=== PATIENT | male | born 1945 | race Caucasian/White ===

== ENCOUNTER 2018-05-05 08:53 | Emergency (ER) | payer MEDICARE ==
[2018-05-05] MEDS: NICARDipine HCL 30 MG CAPSULE PO (09:32)
[2018-05-05] MEDS: HYDROCODONE/APAP (10/325) TAB PO (09:57)
[2018-05-05] MEDS: ONDANSETRON (ODT) 4 MG TAB ODT (09:57)
== END 2018-05-05 10:18 | disposition home or self-care (01) ==
LOC: E/R 08:53
DX: I10 Essential (primary) hypertension (principal); L03.116 Cellulitis of left lower limb; R40.2142 Coma scale, eyes open, spontaneous, at arrival to emergency department; R40.2362 Coma scale, best motor response, obeys commands, at arrival to emergency department
CPT/HCPCS: 99283

== ENCOUNTER 2018-05-05 16:28 | Inpatient (IN) | payer MEDICARE, MEDICAID ==
[~2018-05-05 16:28] MED LIST: METOPROLOL 5 MG INJ; SEVOFLURANE 15 MIN
[2018-05-05 18:15] LABS: ADD MAN DIFF? NO
[2018-05-05 18:17] LABS: WHITE BLOOD COUNT 5.9 10^3/ul (4.8-10.8)
[2018-05-05 18:17] LABS: BASOPHILS % 0.3 % (0.0-2.0); EOSINOPHILS # 0.1 10^3/ul (0.0-0.5); HEMATOCRIT 43.1 % (42.0-52.0); HEMOGLOBIN 13.8 g/dl (14.0-18.0); LYMPHOCYTES # 1.5 10^3/ul (0.8-2.9); LYMPHOCYTES % 24.7 % (15.0-51.0); MEAN CORPUSCULAR HEMOGLOBIN 30.7 pg (29.0-33.0); MEAN PLATELET VOLUME 10.5 fl (7.4-10.4); MONOCYTE # 0.7 10^3/ul (0.3-0.9); MONOCYTES % 11.1 % (0.0-11.0); NEUTROPHIL # 3.7 10^3/ul (1.6-7.5); NEUTROPHILS % 62.4 % (39.0-77.0); PLATELET COUNT 174 10^3/UL (140-415); RED BLOOD COUNT 4.49 10^6/ul (4.70-6.10); RED CELL DISTRIBUTION WIDTH 12.5 % (11.5-14.5)
[2018-05-05 18:32] LABS: INR 0.94; PROTIME 12.7 Sec (11.9-14.9)
[2018-05-05 18:33] LABS: PARTIAL THROMBOPLASTIN TIME 32.4 Sec (23.0-35.0)
[2018-05-05] MEDS: KETOROLAC 15 MG INJ IV (18:34)
[2018-05-05] MEDS: SOD CHLORIDE 0.9% 500 ML IV (18:35)
[2018-05-05] MEDS: PIPER-TAZO 3.375 GM IV (PMX) 100 ML IVPB (18:35)
[2018-05-05 18:36] LABS: ALANINE AMINOTRANSFERASE 17 IU/L (13-69); ALBUMIN 4.3 g/dl (3.3-4.9); ALBUMIN/GLOBULIN RATIO 1.02; ALKALINE PHOSPHATASE 95 IU/L (42-121); ANION GAP 3 (5-13); ASPARTATE AMINO TRANSFERASE 24 IU/L (15-46); BILIRUBIN,INDIRECT 0.3 mg/dl (0-1.1); BILIRUBIN,TOTAL 0.3 mg/dl (0.2-1.3); BLOOD UREA NITROGEN 23 mg/dl (7-20); CALCIUM 9.4 mg/dl (8.4-10.2); CARBON DIOXIDE 27 mmol/L (21-31); CHLORIDE 108 mmol/L (97-110); CREATININE 1.18 mg/dl (0.61-1.24); GLUCOSE 145 mg/dl (70-220); LIPASE 50 U/L (23-300); SODIUM 138 mmol/L (135-144); TOTAL PROTEIN 8.5 g/dl (6.1-8.1)
[2018-05-05 18:37] LABS: ETHANOL < 10.0 mg/dl (0-0)
[2018-05-05] MEDS ORDERED: MIDAZOLAM 1 MG/ML 2 ML INJ (19:27)
[2018-05-05] MEDS ORDERED: morphine SULFATE/PF (10 MG/10 ML) INJ (19:28)
[2018-05-05] MEDS ORDERED: FENTAnyl 50 MCG/ML VIAL ×2 (19:28→20:26)
[2018-05-05] MEDS: VANCOMYCIN 1 GM (PMX) 250 ML IVPB (19:55)
[2018-05-05] MEDS ORDERED: hydrALAzine 20 MG INJ (20:24)
[2018-05-05] MEDS ORDERED: PROPOFOL 20 ML (20:44)
[2018-05-05] MEDS ORDERED: LIDOCAINE 2% (SDV) 5 ML INJ (20:44)
[2018-05-05] MEDS ORDERED: ONDANSETRON 4 MG INJ (20:45)
[2018-05-05] MEDS ORDERED: LABETALOL HCL 20MG INJ IV (21:00)
[2018-05-05] MEDS ORDERED: DIPHENHYDRAMINE 50 MG INJ IV ×2 (21:00)
[2018-05-05] MEDS ORDERED: FENTAnyl 50 MCG/ML VIAL IV (21:00)
[2018-05-05] MEDS ORDERED: MEPERIDINE 25 MG INJ IV (21:00)
[2018-05-05] MEDS: FAMOTIDINE 20 MG TAB PO (21:00)
[2018-05-05] MEDS ORDERED: NALOXONE (0.4 MG/ML) INJ IV (21:00)
[2018-05-05] MEDS ORDERED: hydrALAzine 20 MG INJ IV (21:00)
[2018-05-05] MEDS ORDERED: ONDANSETRON 4 MG INJ IV (21:00)
[2018-05-05] MEDS ORDERED: morphine 2 MG INJ IV ×2 (21:00→21:30)
[2018-05-05] MEDS ORDERED: METOCLOPRAMIDE 10 MG INJ IV (21:00)
[2018-05-05 21:06] LABS: POTASSIUM 4.2 mmol/L (3.5-5.1)
[2018-05-05] MEDS ORDERED: HYDROCODONE/APAP (5/325) TAB PO (21:30)
[2018-05-05] MEDS ORDERED: NACL 0.9% 3 ML SYG IV (21:30)
[2018-05-05] MEDS ORDERED: ACETAMINOPHEN 325 MG TAB PO (21:30)
[2018-05-05] MEDS ORDERED: VANCOMYCIN IV PER PHARMACY XX (21:30)
[2018-05-06] MEDS: PIPER-TAZO 3.375 GM IV (PMX) 100 ML IVPB ×4 (00:19→17:23)
[2018-05-06] MEDS: VANCOMYCIN 500 MG (PMX) 100 ML IVPB (00:20)
[2018-05-06] MEDS: ONDANSETRON 4 MG INJ IV ×2 (05:30→17:35)
[2018-05-06 06:20] LABS: ADD MAN DIFF? NO
[2018-05-06 06:38] LABS: BASOPHILS % 0.4 % (0.0-2.0); EOSINOPHILS % 0.1 % (0.0-7.0); HEMATOCRIT 41.2 % (42.0-52.0); HEMOGLOBIN 13.1 g/dl (14.0-18.0); LYMPHOCYTES # 0.9 10^3/ul (0.8-2.9); LYMPHOCYTES % 9.9 % (15.0-51.0); MEAN CORPUSCULAR HEMOGLOBIN 30.9 pg (29.0-33.0); MEAN CORPUSCULAR HGB CONC 31.8 g/dl (32.0-37.0); MEAN CORPUSCULAR VOLUME 97.2 fl (82.0-101.0); MEAN PLATELET VOLUME 11.3 fl (7.4-10.4); MONOCYTE # 0.7 10^3/ul (0.3-0.9); MONOCYTES % 7.8 % (0.0-11.0); NEUTROPHILS % 81.6 % (39.0-77.0); PLATELET COUNT 167 10^3/UL (140-415); RED BLOOD COUNT 4.24 10^6/ul (4.70-6.10); RED CELL DISTRIBUTION WIDTH 12.5 % (11.5-14.5)
[2018-05-06 06:38] LABS: HEMOGLOBIN A1C 7.6 % (0-5.9); WHITE BLOOD COUNT 8.6 10^3/ul (4.8-10.8)
[2018-05-06 07:32] LABS: ALANINE AMINOTRANSFERASE 23 IU/L (13-69); ALBUMIN 3.9 g/dl (3.3-4.9); ALBUMIN/GLOBULIN RATIO 0.97; ALKALINE PHOSPHATASE 96 IU/L (42-121); ANION GAP 8 (5-13); ASPARTATE AMINO TRANSFERASE 25 IU/L (15-46); BILIRUBIN,INDIRECT 0.3 mg/dl (0-1.1); BILIRUBIN,TOTAL 0.3 mg/dl (0.2-1.3); BLOOD UREA NITROGEN 24 mg/dl (7-20); CALCIUM 9.2 mg/dl (8.4-10.2); CARBON DIOXIDE 21 mmol/L (21-31); CHLORIDE 110 mmol/L (97-110); CHOL/HDL RATIO 3.5 RATIO; CHOLESTEROL 136 mg/dl (100-200); CREATININE 1.21 mg/dl (0.61-1.24); GLUCOSE 169 mg/dl (70-220); HDL CHOLESTEROL 38 mg/dl (31-75); LDL CHOLESTEROL,CALCULATED 83 mg/dl; POTASSIUM 4.1 mmol/L (3.5-5.1); SODIUM 139 mmol/L (135-144); TOTAL PROTEIN 7.9 g/dl (6.1-8.1); TRIGLYCERIDES 74 mg/dl (0-149)
[2018-05-06] MEDS: FAMOTIDINE 20 MG TAB PO ×2 (08:31→20:02)
[2018-05-06] MEDS: HYDROCODONE/APAP (5/325) TAB PO (12:09)
[2018-05-06] MEDS ORDERED: DEXTROSE 50% 50 ML SYRINGE IV (12:30)
[2018-05-06] MEDS ORDERED: GLUCAGON 1 MG INJ IM (12:30)
[2018-05-06] MEDS ORDERED: GLUCOSE GEL 15 GRAM TUBE PO ×2 (12:30)
[2018-05-06] MEDS ORDERED: GLUCOSE GEL 15 GRAM TUBE BUCCAL (12:30)
[2018-05-06] MEDS: LISINOPRIL 5 MG TAB PO (13:04)
[2018-05-06] MEDS: INSULIN ASPART [NOVOLOG] 3 ML PEN SC ×5 (13:09→20:04)
[2018-05-06] MEDS: hydrALAzine 20 MG INJ IV (17:25)
[2018-05-06] MEDS: KETOROLAC 15 MG INJ IV (20:05)
[2018-05-06] MEDS: INSULIN GLARGINE [LANTus] (100 UNITS/ML) SYG SC (20:16)
[2018-05-06] MEDS: VANCOMYCIN HCL 1.5 GM in SOD CHLORIDE 0.9% 250 ML IVPB (21:37)
[2018-05-07] MEDS: PIPER-TAZO 3.375 GM IV (PMX) 100 ML IVPB ×3 (01:00→12:40)
[2018-05-07 03:16] LABS: ADD UMIC YES; UR ASCORBIC ACID NEGATIVE (NEGATIVE); UR BILIRUBIN (Dip) NEGATIVE (NEGATIVE); UR BLOOD (Dip) NEGATIVE (NEGATIVE); UR CLARITY SLIGHTLY CLOUDY (CLEAR); UR COLOR YELLOW (YELLOW); UR GLUCOSE (Dip) NEGATIVE (NEGATIVE); UR KETONES (Dip) NEGATIVE (NEGATIVE); UR LEUKOCYTE ESTERASE (Dip) NEGATIVE Leu/ul (NEGATIVE); UR NITRITE (Dip) NEGATIVE (NEGATIVE); UR RBC 1 /HPF (0-5); UR SPECIFIC GRAVITY (Dip) 1.024 (1.003-1.030); UR TOTAL PROTEIN (Dip) 1+ mg/dl (NEGATIVE); UR UROBILINOGEN (Dip) NEGATIVE (NEGATIVE); UR WBC 2 /HPF (0-5)
[2018-05-07] MEDS: IBUPROFEN 600 MG TAB PO (04:54)
[2018-05-07 05:01] LABS: ADD MAN DIFF? NO
[2018-05-07 05:15] LABS: BASOPHILS % 0.4 % (0.0-2.0); EOSINOPHILS # 0.1 10^3/ul (0.0-0.5); EOSINOPHILS % 0.9 % (0.0-7.0); HEMATOCRIT 39.5 % (42.0-52.0); HEMOGLOBIN 12.5 g/dl (14.0-18.0); LYMPHOCYTES # 1.7 10^3/ul (0.8-2.9); LYMPHOCYTES % 21.4 % (15.0-51.0); MEAN CORPUSCULAR HEMOGLOBIN 30.3 pg (29.0-33.0); MEAN CORPUSCULAR HGB CONC 31.6 g/dl (32.0-37.0); MEAN CORPUSCULAR VOLUME 95.9 fl (82.0-101.0); MEAN PLATELET VOLUME 11.2 fl (7.4-10.4); MONOCYTE # 0.7 10^3/ul (0.3-0.9); NEUTROPHIL # 5.3 10^3/ul (1.6-7.5); NEUTROPHILS % 67.9 % (39.0-77.0); PLATELET COUNT 146 10^3/UL (140-415); RED BLOOD COUNT 4.12 10^6/ul (4.70-6.10); RED CELL DISTRIBUTION WIDTH 12.9 % (11.5-14.5)
[2018-05-07 05:15] LABS: WHITE BLOOD COUNT 7.8 10^3/ul (4.8-10.8)
[2018-05-07 05:35] LABS: ANION GAP 7 (5-13); BLOOD UREA NITROGEN 34 mg/dl (7-20); CARBON DIOXIDE 24 mmol/L (21-31); CHLORIDE 112 mmol/L (97-110); CREATININE 1.41 mg/dl (0.61-1.24); GLUCOSE 134 mg/dl (70-220); POTASSIUM 3.9 mmol/L (3.5-5.1); SODIUM 143 mmol/L (135-144)
[2018-05-07 05:49] LABS: MAGNESIUM 2.3 mg/dl (1.7-2.5)
[2018-05-07 05:49] LABS: PHOSPHORUS 3.9 mg/dl (2.5-4.9)
[2018-05-07] MEDS: SOD CHLORIDE 0.9% 1,000 ML IV ×2 (06:58→17:00)
[2018-05-07] MEDS: INSULIN ASPART [NOVOLOG] 3 ML PEN SC ×7 (08:00→20:34)
[2018-05-07] MEDS: ENOXAPARIN 30 MG/0.3 ML SYG SC (08:07)
[2018-05-07] MEDS: ASCORBIC ACID 500 MG TAB PO (08:07)
[2018-05-07] MEDS: FAMOTIDINE 20 MG TAB PO ×2 (08:08→20:31)
[2018-05-07] MEDS: ZINC SULFATE 220 MG CAP PO (08:08)
[2018-05-07] MEDS ORDERED: ENOXAPARIN 40 MG/0.4 ML SYG SC (09:00)
[2018-05-07] MEDS: AMLODIPINE 2.5 MG TAB PO ×2 (10:02→20:31)
[2018-05-07] MEDS: ERTAPENEM SODIUM 1 GM in SOD CHLORIDE 0.9% 100 ML IVPB (16:19)
[2018-05-07] MEDS: traMADol 50 MG TAB PO (17:13)
[2018-05-07] MEDS: HYDROCODONE/APAP (5/325) TAB PO (19:30)
[2018-05-07] MEDS: INSULIN GLARGINE [LANTus] (100 UNITS/ML) SYG SC (20:40)
[2018-05-08] MEDS: HYDROCODONE/APAP (5/325) TAB PO ×2 (01:21→08:10)
[2018-05-08] MEDS: hydrALAzine 20 MG INJ IV ×2 (01:37→10:42)
[2018-05-08 05:38] LABS: ADD MAN DIFF? NO
[2018-05-08 05:50] LABS: BASOPHILS % 0.4 % (0.0-2.0); EOSINOPHILS % 0.2 % (0.0-7.0); HEMATOCRIT 40.7 % (42.0-52.0); HEMOGLOBIN 12.9 g/dl (14.0-18.0); LYMPHOCYTES # 1.4 10^3/ul (0.8-2.9); LYMPHOCYTES % 17.9 % (15.0-51.0); MEAN CORPUSCULAR HEMOGLOBIN 30.8 pg (29.0-33.0); MEAN CORPUSCULAR HGB CONC 31.7 g/dl (32.0-37.0); MEAN CORPUSCULAR VOLUME 97.1 fl (82.0-101.0); MEAN PLATELET VOLUME 11.7 fl (7.4-10.4); MONOCYTE # 0.5 10^3/ul (0.3-0.9); MONOCYTES % 6.2 % (0.0-11.0); NEUTROPHILS % 74.9 % (39.0-77.0); PLATELET COUNT 177 10^3/UL (140-415); RED BLOOD COUNT 4.19 10^6/ul (4.70-6.10); RED CELL DISTRIBUTION WIDTH 12.8 % (11.5-14.5)
[2018-05-08 06:11] LABS: MAGNESIUM 2.2 mg/dl (1.7-2.5)
[2018-05-08 06:40] LABS: ANION GAP 9 (5-13); BLOOD UREA NITROGEN 24 mg/dl (7-20); CALCIUM 9.1 mg/dl (8.4-10.2); CARBON DIOXIDE 20 mmol/L (21-31); CHLORIDE 112 mmol/L (97-110); CREATININE 1.05 mg/dl (0.61-1.24); GLUCOSE 139 mg/dl (70-220); POTASSIUM 3.9 mmol/L (3.5-5.1); SODIUM 141 mmol/L (135-144)
[2018-05-08] MEDS: INSULIN ASPART [NOVOLOG] 3 ML PEN SC ×7 (07:44→21:00)
[2018-05-08] MEDS: ZINC SULFATE 220 MG CAP PO (08:10)
[2018-05-08] MEDS: ASCORBIC ACID 500 MG TAB PO (08:10)
[2018-05-08] MEDS: AMLODIPINE 2.5 MG TAB PO (08:11)
[2018-05-08] MEDS: FAMOTIDINE 20 MG TAB PO (08:11)
[2018-05-08] MEDS: ENOXAPARIN 30 MG/0.3 ML SYG SC (08:13)
[2018-05-08] MEDS: DOCUSATE SODIUM 100 MG CAP PO (09:00)
[2018-05-08] MEDS: POLYETHYLENE GLYCOL 17 GM PACKET PO (09:00)
[2018-05-08] MEDS: CEFTRIAXONE 1 GM/50 ML (PMX) 50 ML IVPB (18:15)
[2018-05-08] MEDS: traMADol 50 MG TAB PO (18:15)
[2018-05-08] MEDS: METOPROLOL (XL) 50 MG TAB PO (21:02)
[2018-05-08] MEDS: INSULIN GLARGINE [LANTus] (100 UNITS/ML) SYG SC (21:07)
[2018-05-09 06:06] LABS: ADD MAN DIFF? NO
[2018-05-09 06:08] LABS: WHITE BLOOD COUNT 5.8 10^3/ul (4.8-10.8)
[2018-05-09 06:08] LABS: BASOPHILS % 0.3 % (0.0-2.0); EOSINOPHILS % 0.5 % (0.0-7.0); HEMATOCRIT 40.1 % (42.0-52.0); HEMOGLOBIN 12.8 g/dl (14.0-18.0); LYMPHOCYTES # 1.7 10^3/ul (0.8-2.9); LYMPHOCYTES % 28.3 % (15.0-51.0); MEAN CORPUSCULAR HEMOGLOBIN 30.6 pg (29.0-33.0); MEAN CORPUSCULAR HGB CONC 31.9 g/dl (32.0-37.0); MEAN CORPUSCULAR VOLUME 95.9 fl (82.0-101.0); MEAN PLATELET VOLUME 11.2 fl (7.4-10.4); MONOCYTE # 0.4 10^3/ul (0.3-0.9); MONOCYTES % 7.2 % (0.0-11.0); NEUTROPHIL # 3.7 10^3/ul (1.6-7.5); NEUTROPHILS % 63.4 % (39.0-77.0); PLATELET COUNT 179 10^3/UL (140-415); RED BLOOD COUNT 4.18 10^6/ul (4.70-6.10); RED CELL DISTRIBUTION WIDTH 12.4 % (11.5-14.5)
[2018-05-09 06:26] LABS: ANION GAP 10 (5-13); BLOOD UREA NITROGEN 17 mg/dl (7-20); CALCIUM 9.4 mg/dl (8.4-10.2); CARBON DIOXIDE 23 mmol/L (21-31); CHLORIDE 109 mmol/L (97-110); GLUCOSE 143 mg/dl (70-220); POTASSIUM 3.7 mmol/L (3.5-5.1); SODIUM 142 mmol/L (135-144)
[2018-05-09 06:56] LABS: MAGNESIUM 2.2 mg/dl (1.7-2.5)
[2018-05-09 06:56] LABS: PHOSPHORUS 4.2 mg/dl (2.5-4.9)
[2018-05-09] MEDS: INSULIN ASPART [NOVOLOG] 3 ML PEN SC ×7 (08:00→21:48)
[2018-05-09] MEDS: ASCORBIC ACID 500 MG TAB PO (08:29)
[2018-05-09] MEDS: ZINC SULFATE 220 MG CAP PO (08:29)
[2018-05-09] MEDS: FAMOTIDINE 20 MG TAB PO (08:29)
[2018-05-09] MEDS: ASPIRIN (EC) 81 MG TAB PO (08:30)
[2018-05-09] MEDS: METOPROLOL (XL) 50 MG TAB PO (08:31)
[2018-05-09] MEDS: ENOXAPARIN 30 MG/0.3 ML SYG SC (08:34)
[2018-05-09] MEDS: POLYETHYLENE GLYCOL 17 GM PACKET PO (08:55)
[2018-05-09] MEDS: DOCUSATE SODIUM 100 MG CAP PO (08:55)
[2018-05-09] MEDS: LISINOPRIL 5 MG TAB PO (09:44)
[2018-05-09] MEDS: traMADol 50 MG TAB PO (14:10)
[2018-05-09] MEDS: HYDROCODONE/APAP (5/325) TAB PO (16:21)
[2018-05-09] MEDS: CEFTRIAXONE 1 GM/50 ML (PMX) 50 ML IVPB (16:21)
[2018-05-09] MEDS: NIFEdipine (XL) 60 MG TAB PO (16:27)
[2018-05-09] MEDS: INSULIN GLARGINE [LANTus] (100 UNITS/ML) SYG SC (21:47)
[2018-05-09] MEDS: LACTOBACILLUS RHAMNOSUS CAP PO (21:48)
[2018-05-10] MEDS: INSULIN ASPART [NOVOLOG] 3 ML PEN SC ×7 (08:00→20:59)
[2018-05-10] MEDS: ASCORBIC ACID 500 MG TAB PO (09:34)
[2018-05-10] MEDS: ZINC SULFATE 220 MG CAP PO (09:34)
[2018-05-10] MEDS: FAMOTIDINE 20 MG TAB PO (09:35)
[2018-05-10] MEDS: LACTOBACILLUS RHAMNOSUS CAP PO ×2 (09:35→20:59)
[2018-05-10] MEDS: NIFEdipine (XL) 60 MG TAB PO (09:35)
[2018-05-10] MEDS: LISINOPRIL 5 MG TAB PO (09:35)
[2018-05-10] MEDS: ASPIRIN (EC) 81 MG TAB PO (09:35)
[2018-05-10] MEDS: ENOXAPARIN 30 MG/0.3 ML SYG SC (09:37)
[2018-05-10] MEDS: METOPROLOL (XL) 50 MG TAB PO (09:42)
[2018-05-10] MEDS ORDERED: VANCOMYCIN IV PER PHARMACY XX (11:30)
[2018-05-10] MEDS: CEFTRIAXONE 1 GM/50 ML (PMX) 50 ML IVPB (18:49)
[2018-05-10] MEDS: NITROGLYCERIN (SL) 0.4 MG TAB SL (19:54)
[2018-05-10] MEDS ORDERED: morphine 2 MG INJ IV (20:00)
[2018-05-10 20:44] LABS: TROPONIN-I < 0.012 ng/ml (0.000-0.120)
[2018-05-10] MEDS: VANCOMYCIN HCL 1.5 GM in SOD CHLORIDE 0.9% 250 ML IVPB (21:00)
[2018-05-10] MEDS: INSULIN GLARGINE [LANTus] (100 UNITS/ML) SYG SC (21:30)
[2018-05-11] MEDS: HALOPERIDOL 5 MG INJ IM (01:28)
[2018-05-11 07:09] LABS: BLOOD UREA NITROGEN 23 mg/dl (7-20)
[2018-05-11 07:09] LABS: CREATININE 0.94 mg/dl (0.61-1.24)
[2018-05-11] MEDS: INSULIN ASPART [NOVOLOG] 3 ML PEN SC ×7 (08:00→20:47)
[2018-05-11] MEDS: LACTOBACILLUS RHAMNOSUS CAP PO ×2 (08:50→20:47)
[2018-05-11] MEDS: ASPIRIN (EC) 81 MG TAB PO (08:50)
[2018-05-11] MEDS: ENOXAPARIN 40 MG/0.4 ML SYG SC (08:50)
[2018-05-11] MEDS: FAMOTIDINE 20 MG TAB PO (08:50)
[2018-05-11] MEDS: ASCORBIC ACID 500 MG TAB PO (08:51)
[2018-05-11] MEDS: LISINOPRIL 5 MG TAB PO (08:51)
[2018-05-11] MEDS: METOPROLOL (XL) 50 MG TAB PO (08:51)
[2018-05-11] MEDS: ZINC SULFATE 220 MG CAP PO (08:52)
[2018-05-11] MEDS: NIFEdipine (XL) 60 MG TAB PO (08:52)
[2018-05-11] MEDS: CEFTRIAXONE 1 GM/50 ML (PMX) 50 ML IVPB (16:17)
[2018-05-11] MEDS: traMADol 50 MG TAB PO (17:31)
[2018-05-11] MEDS: VANCOMYCIN HCL 1.5 GM in SOD CHLORIDE 0.9% 250 ML IVPB (20:46)
[2018-05-11] MEDS: INSULIN GLARGINE [LANTus] (100 UNITS/ML) SYG SC (21:01)
[2018-05-12 05:21] LABS: ADD MAN DIFF? NO
[2018-05-12 05:28] LABS: BASOPHILS % 0.5 % (0.0-2.0); EOSINOPHILS # 0.1 10^3/ul (0.0-0.5); EOSINOPHILS % 2.1 % (0.0-7.0); HEMATOCRIT 40.8 % (42.0-52.0); LYMPHOCYTES # 2.3 10^3/ul (0.8-2.9); LYMPHOCYTES % 33.8 % (15.0-51.0); MEAN CORPUSCULAR HEMOGLOBIN 30.6 pg (29.0-33.0); MEAN CORPUSCULAR HGB CONC 31.9 g/dl (32.0-37.0); MEAN PLATELET VOLUME 10.9 fl (7.4-10.4); MONOCYTE # 0.6 10^3/ul (0.3-0.9); MONOCYTES % 8.3 % (0.0-11.0); NEUTROPHIL # 3.7 10^3/ul (1.6-7.5); PLATELET COUNT 183 10^3/UL (140-415); RED BLOOD COUNT 4.25 10^6/ul (4.70-6.10); RED CELL DISTRIBUTION WIDTH 12.5 % (11.5-14.5)
[2018-05-12 05:28] LABS: WHITE BLOOD COUNT 6.7 10^3/ul (4.8-10.8)
[2018-05-12 05:42] LABS: INR 0.89; PROTIME 12.1 Sec (11.9-14.9); PT RATIO 0.9
[2018-05-12 05:52] LABS: ALANINE AMINOTRANSFERASE 49 IU/L (13-69); ALBUMIN 3.7 g/dl (3.3-4.9); ALBUMIN/GLOBULIN RATIO 0.97; ALKALINE PHOSPHATASE 80 IU/L (42-121); ANION GAP 5 (5-13); ASPARTATE AMINO TRANSFERASE 63 IU/L (15-46); BILIRUBIN,INDIRECT 0.1 mg/dl (0-1.1); BILIRUBIN,TOTAL 0.1 mg/dl (0.2-1.3); BLOOD UREA NITROGEN 26 mg/dl (7-20); CALCIUM 9.4 mg/dl (8.4-10.2); CARBON DIOXIDE 29 mmol/L (21-31); CHLORIDE 106 mmol/L (97-110); CREATININE 1.09 mg/dl (0.61-1.24); GLUCOSE 93 mg/dl (70-220); SODIUM 140 mmol/L (135-144); TOTAL PROTEIN 7.5 g/dl (6.1-8.1)
[2018-05-12] MEDS: INSULIN ASPART [NOVOLOG] 3 ML PEN SC ×7 (08:00→21:00)
[2018-05-12] MEDS: ZINC SULFATE 220 MG CAP PO (08:06)
[2018-05-12] MEDS: NIFEdipine (XL) 60 MG TAB PO (08:07)
[2018-05-12] MEDS: LACTOBACILLUS RHAMNOSUS CAP PO ×2 (08:07→21:28)
[2018-05-12] MEDS: ASCORBIC ACID 500 MG TAB PO (08:07)
[2018-05-12] MEDS: FAMOTIDINE 20 MG TAB PO (08:08)
[2018-05-12] MEDS: METOPROLOL (XL) 50 MG TAB PO (08:08)
[2018-05-12] MEDS: ASPIRIN (EC) 81 MG TAB PO (08:08)
[2018-05-12] MEDS: LISINOPRIL 5 MG TAB PO (08:08)
[2018-05-12] MEDS: LORAZEPAM 2 MG INJ IV (15:13)
[2018-05-12] MEDS: LIDOCAINE 1% (MPF) 5 ML VIAL SC (15:30)
[2018-05-12] MEDS ORDERED: POLYMYXIN/BACITRACIN 1L IRRIG (16:43)
[2018-05-12] MEDS ORDERED: MINERAL OIL LIGHT 10 ML VIAL (16:43)
[2018-05-12] MEDS ORDERED: FENTAnyl 50 MCG/ML VIAL (17:05)
[2018-05-12] MEDS ORDERED: MIDAZOLAM 1 MG/ML 2 ML INJ (17:05)
[2018-05-12] MEDS ORDERED: hydrALAzine 20 MG INJ (17:43)
[2018-05-12] MEDS ORDERED: ONDANSETRON 4 MG INJ (17:43)
[2018-05-12] MEDS ORDERED: METOCLOPRAMIDE 10 MG INJ (17:43)
[2018-05-12] MEDS: LIDOCAINE 1% (MPF) 30 ML INJ (17:46)
[2018-05-12] MEDS: LIDOCAINE 1%/EPI (1:100,000) (MDV) 20 ML (17:47)
[2018-05-12] MEDS ORDERED: hydrALAzine 20 MG INJ IV (18:00)
[2018-05-12] MEDS ORDERED: EPHEDrine SULFATE 50 MG/5 ML SYG IV (18:00)
[2018-05-12] MEDS ORDERED: LABETALOL HCL 20MG INJ IV (18:00)
[2018-05-12] MEDS ORDERED: METOCLOPRAMIDE 10 MG INJ IV (18:00)
[2018-05-12] MEDS ORDERED: ONDANSETRON 4 MG INJ IV (18:00)
[2018-05-12] MEDS ORDERED: HYDROmorphONE 1 MG/5 ML IV SYRINGE IV ×2 (18:00)
[2018-05-12] MEDS ORDERED: OXYCODONE/ACETAMINOPHEN (5/325) TAB PO (18:00)
[2018-05-12] MEDS ORDERED: FENTAnyl 50 MCG/ML VIAL IV ×2 (18:00)
[2018-05-12] MEDS: SERTRALINE 50 MG TAB PO (21:29)
[2018-05-12] MEDS: VANCOMYCIN HCL 1.5 GM in SOD CHLORIDE 0.9% 250 ML IVPB (21:31)
[2018-05-12] MEDS: INSULIN GLARGINE [LANTus] (100 UNITS/ML) SYG SC (21:40)
[2018-05-13] MEDS: HALOPERIDOL 5 MG INJ IM (01:33)
[2018-05-13] MEDS: LORAZEPAM 2 MG INJ IV (01:35)
[2018-05-13 06:15] LABS: ADD MAN DIFF? NO
[2018-05-13 06:31] LABS: BASOPHILS % 0.4 % (0.0-2.0); EOSINOPHILS # 0.1 10^3/ul (0.0-0.5); EOSINOPHILS % 1.3 % (0.0-7.0); HEMATOCRIT 41.9 % (42.0-52.0); HEMOGLOBIN 13.3 g/dl (14.0-18.0); LYMPHOCYTES # 1.5 10^3/ul (0.8-2.9); LYMPHOCYTES % 19.5 % (15.0-51.0); MEAN CORPUSCULAR HEMOGLOBIN 30.4 pg (29.0-33.0); MEAN CORPUSCULAR HGB CONC 31.7 g/dl (32.0-37.0); MEAN CORPUSCULAR VOLUME 95.9 fl (82.0-101.0); MEAN PLATELET VOLUME 10.8 fl (7.4-10.4); MONOCYTE # 0.6 10^3/ul (0.3-0.9); MONOCYTES % 7.5 % (0.0-11.0); NEUTROPHIL # 5.5 10^3/ul (1.6-7.5); NEUTROPHILS % 70.8 % (39.0-77.0); PLATELET COUNT 195 10^3/UL (140-415); RED BLOOD COUNT 4.37 10^6/ul (4.70-6.10); RED CELL DISTRIBUTION WIDTH 12.4 % (11.5-14.5)
[2018-05-13 06:31] LABS: WHITE BLOOD COUNT 7.8 10^3/ul (4.8-10.8)
[2018-05-13 06:43] LABS: ALANINE AMINOTRANSFERASE 58 IU/L (13-69); ALBUMIN 3.8 g/dl (3.3-4.9); ALKALINE PHOSPHATASE 87 IU/L (42-121); ANION GAP 8 (5-13); ASPARTATE AMINO TRANSFERASE 65 IU/L (15-46); BILIRUBIN,INDIRECT 0.2 mg/dl (0-1.1); BILIRUBIN,TOTAL 0.2 mg/dl (0.2-1.3); BLOOD UREA NITROGEN 24 mg/dl (7-20); CALCIUM 9.7 mg/dl (8.4-10.2); CARBON DIOXIDE 27 mmol/L (21-31); CHLORIDE 106 mmol/L (97-110); CREATININE 1.09 mg/dl (0.61-1.24); GLUCOSE 110 mg/dl (70-220); POTASSIUM 4.7 mmol/L (3.5-5.1); SODIUM 141 mmol/L (135-144); TOTAL PROTEIN 7.6 g/dl (6.1-8.1)
[2018-05-13] MEDS: INSULIN ASPART [NOVOLOG] 3 ML PEN SC ×7 (08:00→21:00)
[2018-05-13] MEDS: NIFEdipine (XL) 60 MG TAB PO (08:33)
[2018-05-13] MEDS: METOPROLOL (XL) 50 MG TAB PO (08:33)
[2018-05-13] MEDS: FAMOTIDINE 20 MG TAB PO (08:34)
[2018-05-13] MEDS: ZINC SULFATE 220 MG CAP PO (08:34)
[2018-05-13] MEDS: ASCORBIC ACID 500 MG TAB PO (08:34)
[2018-05-13] MEDS: ASPIRIN (EC) 81 MG TAB PO (08:34)
[2018-05-13] MEDS: LACTOBACILLUS RHAMNOSUS CAP PO ×2 (08:34→21:33)
[2018-05-13] MEDS: LISINOPRIL 5 MG TAB PO (08:35)
[2018-05-13] MEDS: ERTAPENEM SODIUM 1 GM in SOD CHLORIDE 0.9% 100 ML IVPB (15:16)
[2018-05-13 21:01] LABS: VANCOMYCIN,TROUGH 9.8 ug/ml (10.0-20.0)
[2018-05-13] MEDS: SERTRALINE 50 MG TAB PO (21:30)
[2018-05-13] MEDS: INSULIN GLARGINE [LANTus] (100 UNITS/ML) SYG SC (21:32)
[2018-05-13] MEDS: VANCOMYCIN HCL 1.5 GM in SOD CHLORIDE 0.9% 250 ML IVPB (21:33)
[2018-05-14] MEDS: INSULIN ASPART [NOVOLOG] 3 ML PEN SC ×7 (08:00→21:00)
[2018-05-14] MEDS: ENOXAPARIN 40 MG/0.4 ML SYG SC (08:30)
[2018-05-14] MEDS: FAMOTIDINE 20 MG TAB PO (08:31)
[2018-05-14] MEDS: ASPIRIN (EC) 81 MG TAB PO (08:31)
[2018-05-14] MEDS: ZINC SULFATE 220 MG CAP PO (08:31)
[2018-05-14] MEDS: ASCORBIC ACID 500 MG TAB PO (08:31)
[2018-05-14] MEDS: LISINOPRIL 5 MG TAB PO (08:32)
[2018-05-14] MEDS: NIFEdipine (XL) 60 MG TAB PO (08:32)
[2018-05-14] MEDS: METOPROLOL (XL) 50 MG TAB PO (08:33)
[2018-05-14] MEDS: LACTOBACILLUS RHAMNOSUS CAP PO ×2 (08:33→21:04)
[2018-05-14] MEDS: ERTAPENEM SODIUM 1 GM in SOD CHLORIDE 0.9% 100 ML IVPB (14:38)
[2018-05-14] MEDS: traZODone 50 MG TAB PO ×2 (15:49→21:04)
[2018-05-14] MEDS: LIDOCAINE 1% (MPF) 5 ML VIAL SC (17:00)
[2018-05-14] MEDS: OLANZAPINE (ODT) 5 MG TAB ODT (21:04)
[2018-05-14] MEDS: SERTRALINE 50 MG TAB PO (21:05)
[2018-05-14] MEDS: VANCOMYCIN HCL 1.5 GM in SOD CHLORIDE 0.9% 250 ML IVPB (21:05)
[2018-05-14] MEDS: INSULIN GLARGINE [LANTus] (100 UNITS/ML) SYG SC (21:15)
[2018-05-15 07:24] LABS: ADD MAN DIFF? NO
[2018-05-15 07:28] LABS: BASOPHILS % 0.4 % (0.0-2.0); EOSINOPHILS # 0.1 10^3/ul (0.0-0.5); EOSINOPHILS % 1.4 % (0.0-7.0); HEMOGLOBIN 13.3 g/dl (14.0-18.0); LYMPHOCYTES # 1.8 10^3/ul (0.8-2.9); LYMPHOCYTES % 19.6 % (15.0-51.0); MEAN CORPUSCULAR HEMOGLOBIN 30.4 pg (29.0-33.0); MEAN CORPUSCULAR HGB CONC 31.7 g/dl (32.0-37.0); MEAN CORPUSCULAR VOLUME 96.1 fl (82.0-101.0); MEAN PLATELET VOLUME 11.2 fl (7.4-10.4); MONOCYTE # 0.7 10^3/ul (0.3-0.9); MONOCYTES % 8.2 % (0.0-11.0); NEUTROPHIL # 6.3 10^3/ul (1.6-7.5); PLATELET COUNT 192 10^3/UL (140-415); RED BLOOD COUNT 4.37 10^6/ul (4.70-6.10); RED CELL DISTRIBUTION WIDTH 12.3 % (11.5-14.5)
[2018-05-15 07:54] LABS: ANION GAP 9 (5-13); BLOOD UREA NITROGEN 29 mg/dl (7-20); CALCIUM 9.4 mg/dl (8.4-10.2); CARBON DIOXIDE 26 mmol/L (21-31); CHLORIDE 106 mmol/L (97-110); GLUCOSE 77 mg/dl (70-220); POTASSIUM 4.5 mmol/L (3.5-5.1); SODIUM 141 mmol/L (135-144)
[2018-05-15] MEDS: INSULIN ASPART [NOVOLOG] 3 ML PEN SC ×7 (08:00→21:00)
[2018-05-15] MEDS: ASCORBIC ACID 500 MG TAB PO (09:46)
[2018-05-15] MEDS: LISINOPRIL 5 MG TAB PO (09:46)
[2018-05-15] MEDS: NIFEdipine (XL) 60 MG TAB PO (09:46)
[2018-05-15] MEDS: traZODone 50 MG TAB PO ×2 (09:47→21:31)
[2018-05-15] MEDS: ZINC SULFATE 220 MG CAP PO (09:47)
[2018-05-15] MEDS: ASPIRIN (EC) 81 MG TAB PO (09:47)
[2018-05-15] MEDS: LACTOBACILLUS RHAMNOSUS CAP PO ×2 (09:47→21:31)
[2018-05-15] MEDS: FAMOTIDINE 20 MG TAB PO (09:47)
[2018-05-15] MEDS: METOPROLOL (XL) 50 MG TAB PO (09:47)
[2018-05-15] MEDS: OLANZAPINE (ODT) 5 MG TAB ODT (09:47)
[2018-05-15] MEDS: ENOXAPARIN 40 MG/0.4 ML SYG SC (09:50)
[2018-05-15] MEDS ORDERED: BISACODYL (EC) 5 MG TAB PO (12:30)
[2018-05-15] MEDS: ERTAPENEM SODIUM 1 GM in SOD CHLORIDE 0.9% 100 ML IVPB (14:11)
[2018-05-15] MEDS: DOCUSATE SODIUM 100 MG CAP PO (21:31)
[2018-05-15] MEDS: SERTRALINE 50 MG TAB PO (21:31)
[2018-05-15] MEDS: INSULIN GLARGINE [LANTus] (100 UNITS/ML) SYG SC (21:33)
[2018-05-15] MEDS: VANCOMYCIN HCL 1.5 GM in SOD CHLORIDE 0.9% 250 ML IVPB (21:37)
[2018-05-16 06:09] LABS: ADD MAN DIFF? NO
[2018-05-16 06:13] LABS: BASOPHILS % 0.4 % (0.0-2.0); EOSINOPHILS # 0.2 10^3/ul (0.0-0.5); EOSINOPHILS % 2.5 % (0.0-7.0); HEMATOCRIT 41.5 % (42.0-52.0); HEMOGLOBIN 13.6 g/dl (14.0-18.0); LYMPHOCYTES # 1.7 10^3/ul (0.8-2.9); LYMPHOCYTES % 21.4 % (15.0-51.0); MEAN CORPUSCULAR HEMOGLOBIN 30.6 pg (29.0-33.0); MEAN CORPUSCULAR HGB CONC 32.8 g/dl (32.0-37.0); MEAN CORPUSCULAR VOLUME 93.5 fl (82.0-101.0); MEAN PLATELET VOLUME 11.2 fl (7.4-10.4); MONOCYTE # 0.6 10^3/ul (0.3-0.9); NEUTROPHIL # 5.4 10^3/ul (1.6-7.5); NEUTROPHILS % 67.3 % (39.0-77.0); PLATELET COUNT 176 10^3/UL (140-415); RED BLOOD COUNT 4.44 10^6/ul (4.70-6.10); RED CELL DISTRIBUTION WIDTH 12.3 % (11.5-14.5)
[2018-05-16 06:42] LABS: MAGNESIUM 2.1 mg/dl (1.7-2.5)
[2018-05-16 06:42] LABS: PHOSPHORUS 4.3 mg/dl (2.5-4.9)
[2018-05-16] MEDS: INSULIN ASPART [NOVOLOG] 3 ML PEN SC ×7 (08:00→21:00)
[2018-05-16 08:31] LABS: ANION GAP 11 (5-13); BLOOD UREA NITROGEN 29 mg/dl (7-20); CALCIUM 9.5 mg/dl (8.4-10.2); CARBON DIOXIDE 23 mmol/L (21-31); CHLORIDE 105 mmol/L (97-110); CREATININE 1.11 mg/dl (0.61-1.24); GLUCOSE 86 mg/dl (70-220); POTASSIUM 3.9 mmol/L (3.5-5.1); SODIUM 139 mmol/L (135-144)
[2018-05-16] MEDS: LACTOBACILLUS RHAMNOSUS CAP PO ×2 (09:07→20:53)
[2018-05-16] MEDS: DOCUSATE SODIUM 100 MG CAP PO ×2 (09:08→20:53)
[2018-05-16] MEDS: NIFEdipine (XL) 60 MG TAB PO (09:09)
[2018-05-16] MEDS: traZODone 50 MG TAB PO (09:09)
[2018-05-16] MEDS: METOPROLOL (XL) 50 MG TAB PO (09:09)
[2018-05-16] MEDS: ASPIRIN (EC) 81 MG TAB PO (09:09)
[2018-05-16] MEDS: FAMOTIDINE 20 MG TAB PO (09:10)
[2018-05-16] MEDS: OLANZAPINE (ODT) 5 MG TAB ODT (09:10)
[2018-05-16] MEDS: ASCORBIC ACID 500 MG TAB PO (09:10)
[2018-05-16] MEDS: CHOLECALCIFEROL 1,000 UNIT TAB PO (09:10)
[2018-05-16] MEDS: ZINC SULFATE 220 MG CAP PO (09:14)
[2018-05-16] MEDS: ENOXAPARIN 40 MG/0.4 ML SYG SC (09:14)
[2018-05-16] MEDS: LISINOPRIL 5 MG TAB PO (09:14)
[2018-05-16] MEDS ORDERED: ACETAMINOPHEN 500 MG TAB PO (12:00)
[2018-05-16] MEDS: ERTAPENEM SODIUM 1 GM in SOD CHLORIDE 0.9% 100 ML IVPB (15:02)
[2018-05-16] MEDS: VANCOMYCIN HCL 1.5 GM in SOD CHLORIDE 0.9% 250 ML IVPB (20:52)
[2018-05-16] MEDS: SERTRALINE 50 MG TAB PO (20:53)
[2018-05-16] MEDS: INSULIN GLARGINE [LANTus] (100 UNITS/ML) SYG SC (20:55)
[2018-05-17 05:32] LABS: ADD MAN DIFF? NO
[2018-05-17 05:34] LABS: WHITE BLOOD COUNT 7.2 10^3/ul (4.8-10.8)
[2018-05-17 05:34] LABS: BASOPHILS % 0.6 % (0.0-2.0); EOSINOPHILS # 0.2 10^3/ul (0.0-0.5); EOSINOPHILS % 3.1 % (0.0-7.0); HEMATOCRIT 40.9 % (42.0-52.0); HEMOGLOBIN 13.6 g/dl (14.0-18.0); LYMPHOCYTES # 1.5 10^3/ul (0.8-2.9); LYMPHOCYTES % 20.9 % (15.0-51.0); MEAN CORPUSCULAR HEMOGLOBIN 30.9 pg (29.0-33.0); MEAN CORPUSCULAR HGB CONC 33.3 g/dl (32.0-37.0); MEAN PLATELET VOLUME 11.4 fl (7.4-10.4); MONOCYTE # 0.6 10^3/ul (0.3-0.9); MONOCYTES % 8.9 % (0.0-11.0); NEUTROPHIL # 4.8 10^3/ul (1.6-7.5); NEUTROPHILS % 66.4 % (39.0-77.0); PLATELET COUNT 176 10^3/UL (140-415); RED CELL DISTRIBUTION WIDTH 12.3 % (11.5-14.5)
[2018-05-17 06:07] LABS: ANION GAP 9 (5-13); BLOOD UREA NITROGEN 31 mg/dl (7-20); CALCIUM 9.4 mg/dl (8.4-10.2); CARBON DIOXIDE 24 mmol/L (21-31); CHLORIDE 110 mmol/L (97-110); CREATININE 0.97 mg/dl (0.61-1.24); GLUCOSE 87 mg/dl (70-220); POTASSIUM 4.3 mmol/L (3.5-5.1); SODIUM 143 mmol/L (135-144)
[2018-05-17 06:21] LABS: MAGNESIUM 2.2 mg/dl (1.7-2.5)
[2018-05-17 06:21] LABS: PHOSPHORUS 4.3 mg/dl (2.5-4.9)
[2018-05-17] MEDS: INSULIN ASPART [NOVOLOG] 3 ML PEN SC ×7 (08:00→21:00)
[2018-05-17] MEDS: LISINOPRIL 5 MG TAB PO (08:51)
[2018-05-17] MEDS: DOCUSATE SODIUM 100 MG CAP PO ×2 (08:51→21:26)
[2018-05-17] MEDS: OLANZAPINE (ODT) 5 MG TAB ODT (08:51)
[2018-05-17] MEDS: CHOLECALCIFEROL 1,000 UNIT TAB PO (08:52)
[2018-05-17] MEDS: ZINC SULFATE 220 MG CAP PO (08:52)
[2018-05-17] MEDS: LACTOBACILLUS RHAMNOSUS CAP PO ×2 (08:52→21:26)
[2018-05-17] MEDS: ASCORBIC ACID 500 MG TAB PO (08:52)
[2018-05-17] MEDS: ASPIRIN (EC) 81 MG TAB PO (08:52)
[2018-05-17] MEDS: FAMOTIDINE 20 MG TAB PO (08:52)
[2018-05-17] MEDS: NIFEdipine (XL) 60 MG TAB PO (08:52)
[2018-05-17] MEDS: METOPROLOL (XL) 50 MG TAB PO (08:53)
[2018-05-17] MEDS: ENOXAPARIN 40 MG/0.4 ML SYG SC (08:54)
[2018-05-17] MEDS: ERTAPENEM SODIUM 1 GM in SOD CHLORIDE 0.9% 100 ML IVPB (13:36)
[2018-05-17 20:41] LABS: VANCOMYCIN,TROUGH 12.8 ug/ml (10.0-20.0)
[2018-05-17] MEDS: HYDROCODONE/APAP (5/325) TAB PO (21:31)
[2018-05-17] MEDS: INSULIN GLARGINE [LANTus] (100 UNITS/ML) SYG SC (21:32)
[2018-05-17] MEDS: VANCOMYCIN HCL 1.5 GM in SOD CHLORIDE 0.9% 250 ML IVPB (21:34)
[2018-05-17] MEDS: SERTRALINE 50 MG TAB PO (21:36)
[2018-05-18 06:12] LABS: ADD MAN DIFF? NO
[2018-05-18 06:19] LABS: BASOPHILS % 0.5 % (0.0-2.0); EOSINOPHILS # 0.2 10^3/ul (0.0-0.5); EOSINOPHILS % 2.6 % (0.0-7.0); HEMATOCRIT 41.3 % (42.0-52.0); HEMOGLOBIN 13.2 g/dl (14.0-18.0); LYMPHOCYTES # 1.9 10^3/ul (0.8-2.9); LYMPHOCYTES % 25.5 % (15.0-51.0); MEAN CORPUSCULAR HEMOGLOBIN 30.1 pg (29.0-33.0); MEAN CORPUSCULAR VOLUME 94.3 fl (82.0-101.0); MEAN PLATELET VOLUME 11.1 fl (7.4-10.4); MONOCYTE # 0.5 10^3/ul (0.3-0.9); MONOCYTES % 7.3 % (0.0-11.0); NEUTROPHIL # 4.7 10^3/ul (1.6-7.5); NEUTROPHILS % 63.8 % (39.0-77.0); PLATELET COUNT 170 10^3/UL (140-415); RED BLOOD COUNT 4.38 10^6/ul (4.70-6.10); RED CELL DISTRIBUTION WIDTH 12.4 % (11.5-14.5)
[2018-05-18 06:19] LABS: WHITE BLOOD COUNT 7.4 10^3/ul (4.8-10.8)
[2018-05-18 06:50] LABS: MAGNESIUM 2.2 mg/dl (1.7-2.5)
[2018-05-18 06:50] LABS: PHOSPHORUS 4.3 mg/dl (2.5-4.9)
[2018-05-18 07:04] LABS: ANION GAP 6 (5-13); BLOOD UREA NITROGEN 28 mg/dl (7-20); CALCIUM 9.4 mg/dl (8.4-10.2); CARBON DIOXIDE 27 mmol/L (21-31); CHLORIDE 107 mmol/L (97-110); CREATININE 0.97 mg/dl (0.61-1.24); GLUCOSE 73 mg/dl (70-220); POTASSIUM 4.5 mmol/L (3.5-5.1); SODIUM 140 mmol/L (135-144)
[2018-05-18] MEDS: INSULIN ASPART [NOVOLOG] 3 ML PEN SC ×4 (08:00→13:52)
[2018-05-18] MEDS: ZINC SULFATE 220 MG CAP PO (08:22)
[2018-05-18] MEDS: LACTOBACILLUS RHAMNOSUS CAP PO (08:22)
[2018-05-18] MEDS: CHOLECALCIFEROL 1,000 UNIT TAB PO (08:22)
[2018-05-18] MEDS: FAMOTIDINE 20 MG TAB PO (08:22)
[2018-05-18] MEDS: ASCORBIC ACID 500 MG TAB PO (08:22)
[2018-05-18] MEDS: ASPIRIN (EC) 81 MG TAB PO (08:22)
[2018-05-18] MEDS: OLANZAPINE (ODT) 5 MG TAB ODT (08:22)
[2018-05-18] MEDS: NIFEdipine (XL) 60 MG TAB PO (08:23)
[2018-05-18] MEDS: DOCUSATE SODIUM 100 MG CAP PO (08:23)
[2018-05-18] MEDS: LISINOPRIL 5 MG TAB PO (08:23)
[2018-05-18] MEDS: METOPROLOL (XL) 50 MG TAB PO (08:23)
[2018-05-18] MEDS: ENOXAPARIN 40 MG/0.4 ML SYG SC (08:28)
[2018-05-18] MEDS: ERTAPENEM SODIUM 1 GM in SOD CHLORIDE 0.9% 100 ML IVPB (13:01)
[2018-05-18] MEDS: DEXTROSE 50% 50 ML SYRINGE IV (13:26)
[2018-05-18] MEDS: hydrALAzine 20 MG INJ IV (17:24)
== END 2018-05-18 17:55 | DRG 264 ==
LOC: E/R 16:28 → REC 18:43 → 2NE 22:11
PROC: 0JBP0ZZ Excision of Left Lower Leg Subcutaneous Tissue and Fascia, Open Approach (ICD-10-PCS; principal; 2018-05-05 19:30)
PROC: 0HRLXK3 Replacement of Left Lower Leg Skin with Nonautologous Tissue Substitute, Full Thickness, External Approach (ICD-10-PCS; 2018-05-05 19:30)
PROC: 0HRLX74 Replacement of Left Lower Leg Skin with Autologous Tissue Substitute, Partial Thickness, External Approach (ICD-10-PCS; 2018-05-05 19:57)
PROC: 0HBHXZZ Excision of Right Upper Leg Skin, External Approach (ICD-10-PCS; 2018-05-05 19:57)
PROC: 02HV33Z Insertion of Infusion Device into Superior Vena Cava, Percutaneous Approach (ICD-10-PCS; 2018-05-05 19:57)
DX: E11.52 Type 2 diabetes mellitus with diabetic peripheral angiopathy with gangrene (principal); G92 Toxic encephalopathy; L03.116 Cellulitis of left lower limb; N17.9 Acute kidney failure, unspecified; L97.829 Non-pressure chronic ulcer of other part of left lower leg with unspecified severity; I10 Essential (primary) hypertension; E78.5 Hyperlipidemia, unspecified; K40.90 Unilateral inguinal hernia, without obstruction or gangrene, not specified as recurrent; E11.622 Type 2 diabetes mellitus with other skin ulcer; E66.9 Obesity, unspecified; E11.40 Type 2 diabetes mellitus with diabetic neuropathy, unspecified; R32 Unspecified urinary incontinence; R15.9 Full incontinence of feces; Z68.34 Body mass index [BMI] 34.0-34.9, adult
CPT/HCPCS: 36415; 36569; 71045; 76937; 80048; 80053; 80061; 80202; 80307; 81001; 82306; 82565; 82652; 82962; 83036; 83690; 83735; 84100; 84443; 84484; 84520; 85025; 85610; 85730; 87040; 87070; 87075; 87081; 87086; 87102; 88304; 93005; 93922; 96374; 96375; 99285-25